=== PATIENT | female | born 1960 | race Caucasian/White ===

== ENCOUNTER 2020-01-15 10:55 | Emergency (ER) | payer OTHER ==
--- NOTE | 2020-01-15 11:08 | EDM.PDOC ---
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 Non weight bearing. Left Ankle Pain Score (Numeric/FACES): 7 - Related Data Allergies Allergy/AdvReac Type Severity Reaction Status Date / Time No Known Allergies Allergy Verified 01/15/20 11:07 Home Meds: Home Meds Levothyroxine [Synthroid] 50 mcg PO ACBREAKFAST 01/15/20 [History] Simvastatin 20 mg PO DAILY 01/15/20 [History] Review of Systems - Review of Systems Review Of Systems: Comprehensive ROS is negative, except as noted in HPI. ED EXAM, GENERAL - Physical Exam Exam: See Below Exam Limited By: No Limitations General Appearance: Alert, Mild Distress Eye Exam: Bilateral Eye: EOMI Ears: Normal External Exam Nose: Normal Inspection Throat/Mouth: Normal Inspection Head: Atraumatic, Normocephalic Neck: Normal Inspection Respiratory/Chest: No Respiratory Distress, Normal Breath Sounds Cardiovascular: Normal Peripheral Pulses, Regular Rate, Rhythm GI/Abdominal: Soft Extremities: Joint Swelling (left alteral ankle.), Limited Range of Motion. No: Redness Neurological: Alert, Oriented, CN II-XII Intact, Normal Cognition Psychiatric: Normal Affect Skin Exam: Warm, Dry, Intact, Normal Color. No: Ecchymosis Course - Vital Signs Last Recorded V/S: Last Vital Signs Temp 97.6 F 01/15/20 11:22 Pulse 67 01/15/20 11:22 Resp 18 01/15/20 11:22 BP 120/78 01/15/20 11:22 Pulse Ox 99 01/15/20 11:22 - Orders/Labs/Meds Meds: Medications Discontinued Medications Generic Name Dose Route Start Last Admin Trade Name Freq PRN Reason Stop Dose Admin Hydrocodone Bitart/Acetaminophen 1 tab 01/15/20 11:57 01/15/20 12:08 [place] 325-10 Mg PO 01/15/20 11:58 1 tab ONETIME ONE Administration Departure - Departure Time of Disposition: 11:50 Disposition: Home, Self-Care 01 Condition: Good Clinical Impression: Fracture of distal end of fibula Qualifiers: Encounter type: initial encounter Fracture type: closed Fracture morphology: unspecified fracture morphology Laterality: left Qualified Code(s): S82.832A - Other fracture of upper and lower end of left fibula, initial encounter for closed fracture - Discharge Information *PRESCRIPTION DRUG MONITORING PROGRAM REVIEWED*: No *COPY OF PRESCRIPTION DRUG MONITORING REPORT IN PATIENT [place]: No Instructions: Crutch Use, Adult, [id number], Cast or Splint Care, Adult, [id number] Referrals: PCP,None [Primary Care Provider] - Forms: ED Department Discharge Additional Instructions: ice rest elevation immobilization with CAM boot partial weight bearing if tolerated tylenol 650mg or ibuprofen 600mg every 4 hours as needed for moderate pain hydorcodone 10/325 one every 6 hours as needed for severe pain clinic follow up this week, contact PCP to arrange follow up with ortho Sepsis Event Note (ED) - Focused Exam Vital Signs: Vital Signs Temp Pulse Resp BP Pulse Ox 01/15/20 11:22 97.6 F 67 18 120/78 99
--- NOTE | 2020-01-15 11:30 | CR ---
PROCEDURE INFORMATION: Exam: XR Left Ankle Exam date and time: 01/15/2020 11:05 AM Age: 59 years old Clinical indication: Pain; Ankle; Left; Additional info: Fall pain TECHNIQUE: Imaging protocol: XR Left ankle. Views: 3 or more views. COMPARISON: No relevant prior studies available. FINDINGS: Bones/joints: Transverse nondisplaced fracture at the distal fibula. Tibia intact. The mortise joint space is symmetric. Soft tissues: There is soft tissue swelling appreciated. IMPRESSION: Transverse nondisplaced fracture at the distal fibula.
[2020-01-15] MEDS ORDERED: Acetaminophen/HYDROcodone 325-10 MG Tab PO ONE (11:57)
== END 2020-01-15 12:20 | disposition home or self-care (01) ==
LOC: DL.ED 10:55
DX: S82.832A Other fracture of upper and lower end of left fibula, initial encounter for closed fracture (principal); Z79.899 Other long term (current) drug therapy; X50.1XXA Overexertion from prolonged static or awkward postures, initial encounter
CPT/HCPCS: 73610; 99283; A9270